=== PATIENT | male | born 1970 | race Caucasian/White ===

== ENCOUNTER 2022-04-04 11:56 | Inpatient (IN) | payer MEDICAID, SELFPAY ==
[2022-04-04] VITALS (9 sets, daily range): BP systolic 103–138; BP diastolic 59–82; PULSE 85–107; RESP 16–18; TEMP 37.1–37.9; O2SAT 93–97; BMI 38.5; BMI 38.3
--- NOTE | 2022-04-04 12:34 | ED.VIS.LOWEX ---
HPI History of Present Illness HPI Narrative: Left thigh infection Chief Complaint: Wound Informant: patient Occured/Mechanism Mechanism/Context: No injury and No blunt trauma Onset/Context/Timing Onset: Days Context: Gradual Onset Timing: Continuous Quality of Pain: Dull and Aching Current Severity: Mild Maximum Severity: Mild Associated Symptoms Associated Symptoms: Negative for Parasthesia, Weakness or Loss of Funtion Narrative Narrative: 51-year-old male prior history of end-stage renal disease and was receiving dialysis 6 years ago he got a renal transplant and has been off dialysis since that time. He was diagnosed as diabetic about a week ago and started on oral medication. States since last Sunday or has developed left thigh discomfort swelling and redness. He was seen today in urgent care and referred in for left thigh cellulitis. He has had fever and chills. He denies vomiting or diarrhea. He is not recently been on any antibiotics nor recently been hospitalized. Prior similar symptoms: No Recent Illness/Hospitalization: No PFSH PFS Medical History Diabetes Home Medications mycophenolate mofetil 250 mg capsule 750 mg PO BID 01/17/14 [History Last Taken Unknown] tacrolimus 1 mg capsule,extended release 24 hr (Astagraf XL) 4 mg PO BID 01/17/14 [History Last Taken Unknown] aspirin 81 mg tablet,delayed release 81 mg PO DAILY 04/04/22 [History Last Taken 04/04/22] atorvastatin 80 mg tablet 80 mg PO QHS 04/04/22 [History Last Taken 04/03/22] cholecalciferol (vitamin D3) 50 mcg (2,000 unit) capsule 2,000 unit PO DAILY 04/04/22 [History Last Taken 04/04/22] icosapent ethyl 1 gram capsule 2 g PO BID 04/04/22 [History Last Taken 04/04/22] losartan 25 mg tablet 25 mg PO BID 04/04/22 [History Last Taken 04/04/22] metformin 500 mg tablet 500 mg PO BID 04/04/22 [History Last Taken 04/03/22] metoprolol tartrate 25 mg tablet 25 mg PO BID 04/04/22 [History Last Taken 04/04/22] tacrolimus 1 mg capsule, immediate-release 3 mg PO DAILY@2100 04/04/22 [History Last Taken 04/03/22] Allergy/AdvReac Type Severity Reaction Status Date / Time No Known Allergies Allergy Verified 04/04/22 11:57 Surgical History History of heart artery stent History of kidney transplant Social History Smoking Status: Never smoker ROS ROS ED ROS Narrative Left eye redness and swelling. Fever and chills. Review of Systems ROS Unobtainable: Denies due to encephalopathy Constitutional Constitutional ED: Reports chills and fever(s) Eyes Eyes: Denies blurry vision ENT ENT ED: Denies ear pain Cardiovascular Cardiovascular: Denies chest pain Respiratory/Chest Respiratory/Chest: Denies cough or dyspnea Gastrointestinal Gastrointestinal: Denies abdominal pain Genitourinary Genitourinary ED: Denies dysuria or hematuria Musculoskeletal Musculoskeletal: Denies arthralgias Integumentary Reports rash Neurologic Neurologic: Denies headache(s) Psychiatric Psychiatric: Denies anxiety Endocrine Endocrinology: Denies polydipsia Hematologic/Lymphatic Hematologic/Lymphatic: Denies easy bleeding Allergic/Immunologic Allergic/Immunologic ED: Denies mouth swelling or tongue swelling EXAM Physical Exam Narrative Exam Narrative: 51-year-old male vital signs stable afebrile does not look septic toxic. No distress. H EENT exam unremarkable. Neck nontender. Lungs are clear. Heart regular rhythm rate about 100 no murmur. Abdomen soft nontender. Moving all 4 extremities. On his right proximal thigh just below the inguinal crease he has a wound. There is a large area of cellulitis. Area is tender. Skin is edematous. The distal thigh and lower leg are nontender. He has normal dorsi plantar flexion. This is an obvious cellulitis of the left thigh and infection. I do not feel an obvious abscess but that is a possibility also. Otherwise exam unremarkable. Const Vital Signs: 04/04/22 11:57 04/04/22 12:19 04/04/22 13:57 Temperature 98.8 F 99.5 F H 100.2 F H Temperature Source Temporal Oral Oral Pulse Rate 107 H 96 89 Respiratory Rate 16 18 18 Blood Pressure 138/78 H 131/82 H 127/76 H Blood Pressure Mean 98 98 93 Pulse Ox 95 97 95 Oxygen Delivery Method Room Air Room Air Room Air Positive well nourished, well developed and obese; Negative for cachectic, contractures or unkempt General Appearance ED: well developed and NAD; Negative for unkempt, cachectic or contractures Nutritional Appearance: obese; Negative for cachectic HEENT Reports moist mucous membranes normocephalic and atraumatic; Negative for trauma or tenderness Eyes PERRL Neck full ROM Thyroid: Negative for tender Lymph Lymphatic: Negative for other Chest Wall inspection of chest normal and palpation of chest normal Chest: Negative for other Resp normal respiratory effort, no retractions and clear to auscultation bilaterally Effort and Inspection: Negative for pain with movement Auscultation: Negative for rales or rhonchi Percussion: Negative for other Cardio regular rate, regular rhythm, S1 normal heart sound, S2 normal heart sound and no murmurs GI non-tender, non-distended and no masses Inspection: Negative for abdominal distention Auscultation: normoactive bowel sounds Palpation: soft; Negative for tender Back/Spine no CVA tenderness General Back: Negative for CVA tenderness Cervical Spine: Negative for cervical spine tenderness Thoracic Spine / Upper Back: Negative for thoracic spinal tenderness Lumbar Spine / Lower Back: Negative for lumbar spinal tenderness Extremity normal to inspection and full ROM Extremity Narrative: Except proximal anterior left thigh there is a wound, redness consistent with cellulitis swelling and tenderness. Distally unremarkable. Normal motor strength. General Extremety ED: Yes edema General Extremity: edema Neuro oriented x3 and moves all extremities Sensorium / Orientation: alert, oriented to person, oriented to place and oriented to time; Negative for orientation impaired, confused, lethargic or stuporous Motor Exam: strength 5/5 throughout; Negative for general weakness Psych mental status grossly normal Appearance: Negative for unkempt Speech: No other Mood & Affect: Negative for anxious Skin No no wounds Skin Narrative: Left thigh wound is infected. Cellulitis. Tender. Lesions: no lesions Rashes: No no rashes Trauma: Negative for abrasion MDM MDM MDM Narrative Medical decision making narrative: Diabetic with a kidney transplant with a large left thigh wound with cellulitis. Started on IV Zosyn. He will need to be admitted. Labs will be obtained. Repeat exam unchanged. I will speak to the hospitalist about admission. Lab Data Attestation: I reviewed the patient's lab results. Lab results narrative: CBC shows a white count is elevated 17.2 consistent with a left thigh infection. H&H of 15 and 47 2. Platelets of 209. BG T is 163 Electrolytes unremarkable. Normal BUN and creatinine. Normal gap. Glucose 158. Liver enzymes unremarkable. Labs: Laboratory Results - last 24 hr 04/04/22 04/04/22 04/04/22 12:36 12:39 12:39 WBC Cancelled Corrected WBC Cancelled RBC Cancelled Hgb Cancelled Hct Cancelled MCV Cancelled MCH Cancelled MCHC Cancelled RDW Std Deviation Cancelled RDW Coeff of Tra Cancelled Plt Count Cancelled MPV Cancelled Immature Gran % (Auto) Cancelled Neut % (Auto) Cancelled Lymph % (Auto) Cancelled [place] % (Auto) Cancelled Eos % (Auto) Cancelled Baso % (Auto) Cancelled Absolute Neuts (auto) Cancelled Absolute Lymphs (auto) Cancelled Total Counted Cancelled Neutrophils % (Manual) Cancelled Band Neutrophils % Cancelled Lymphocytes % (Manual) Cancelled Monocytes % (Manual) Cancelled Eosinophils % (Manual) Cancelled Basophils % (Manual) Cancelled Metamyelocytes % Cancelled Myelocytes % Cancelled Promyelocytes % Cancelled Blast Cells % Cancelled Plasma Cell % (Manual) Cancelled Other Cells % Cancelled Nucleated RBC % Cancelled Nucleated RBCs/100 WBC Cancelled Differential Comment Cancelled Diff Path Review Cancelled Hypersegmented Neuts Cancelled Atypical Lymphocytes Cancelled Reactive Lymphocytes Cancelled Smudge Cells Cancelled Toxic Granulation Cancelled Toxic Vacuolation Cancelled Dohle Bodies Cancelled Prakash Rods Cancelled Platelet Estimate Cancelled Plt Morphology Comment Cancelled RBC Morphology Cancelled Polychromasia Cancelled Hypochromasia Cancelled Poikilocytosis Cancelled Basophilic Stippling Cancelled Anisocytosis Cancelled Microcytosis Cancelled Macrocytosis Cancelled Spherocytes Cancelled Sickle Cells Cancelled Target Cells Cancelled Tear Drop Cells Cancelled Ovalocytes Cancelled Stomatocytes Cancelled Suresh[place] Bodies Cancelled Jefry Cells Cancelled Bite Cells Cancelled Crenated Cell Cancelled Acanthocytes (Spur) Cancelled Rouleaux Cancelled Schistocytes Cancelled Sodium 136 Potassium 3.8 Chloride 102 Carbon Dioxide 22.0 Anion Gap 12 BUN 14 Creatinine 1.08 Estim Creat Clear Calc 80.01 Est GFR (MDRD) Af Amer 92 Est GFR (MDRD) Non-Af 76 BUN/Creatinine Ratio 13.0 Glucose 158 H Calcium 10.1 Total Bilirubin 0.90 AST 19 ALT 39 Alkaline Phosphatase 121 H Total Protein 8.1 Albumin 3.2 Globulin 4.9 H Albumin/Globulin Ratio 0.7 L POC Glucose 163 H 04/04/22 13:03 WBC 17.2 H Corrected WBC RBC 4.92 Hgb 15.0 Hct 47.2 MCV 95.9 H MCH 30.5 MCHC 31.8 L RDW Std Deviation 49.6 H RDW Coeff of Tar 14.1 Plt Count 209 MPV 10.3 Immature Gran % (Auto) 0.600 Neut % (Auto) 87.7 H Lymph % (Auto) 4.0 L [place] % (Auto) 7.1 Eos % (Auto) 0.2 Baso % (Auto) 0.4 Absolute Neuts (auto) 15.1 H Absolute Lymphs (auto) 0.69 L Total Counted Neutrophils % (Manual) Band Neutrophils % Lymphocytes % (Manual) Monocytes % (Manual) Eosinophils % (Manual) Basophils % (Manual) Metamyelocytes % Myelocytes % Promyelocytes % Blast Cells % Plasma Cell % (Manual) Other Cells % Nucleated RBC % 0 Nucleated RBCs/100 WBC Differential Comment Diff Path Review Hypersegmented Neuts Atypical Lymphocytes Reactive Lymphocytes Smudge Cells Toxic Granulation Toxic Vacuolation Dohle Bodies Prakash Rods Platelet Estimate Plt Morphology Comment RBC Morphology Polychromasia Hypochromasia Poikilocytosis Basophilic Stippling Anisocytosis Microcytosis Macrocytosis Spherocytes Sickle Cells Target Cells Tear Drop Cells Ovalocytes Stomatocytes [place]ures[place] Bodies Jefry Cells Bite Cells Crenated Cell Acanthocytes (Spur) Rouleaux Schistocytes Sodium Potassium Chloride Carbon Dioxide Anion Gap BUN Creatinine Estim Creat Clear Calc Est GFR (MDRD) Af Amer Est GFR (MDRD) Non-Af BUN/Creatinine Ratio Glucose Calcium Total Bilirubin AST ALT Alkaline Phosphatase Total Protein Albumin Globulin Albumin/Globulin Ratio POC Glucose Discharge Plan Triage Chief Complaint: Wound ED Provider: Hany Koo Dx/Rx/DC Orders Clinical Impression: Cellulitis of left thigh, History of diabetes mellitus, History of chronic kidney disease, History of renal transplant Prescriptions: No Action mycophenolate mofetil 250 MG capsule 1,000 mg PO BID@0900,2100 Astagraf XL 1 MG capsule,extended release 24hr 2 mg PO DAILY@0900 metformin 500 mg tablet 500 mg PO BID Label Comments: TAKE 1 TABLET BY MOUTH TWICE DAILY WITH MEALS atorvastatin 80 mg tablet 80 mg PO QHS Label Comments: Take 1 tablet by mouth nightly aspirin 81 mg tablet,delayed release (DR/EC) 81 mg PO DAILY Label Comments: Take 1 tablet by mouth daily losartan 25 mg tablet 25 mg PO BID Label Comments: TAKE 1 TABLET BY MOUTH EVERY 12 HOURS tacrolimus 1 mg capsule 3 mg PO DAILY@2100 Label Comments: TAKE 2 CAPSULES BY MOUTH at 9 AM and TAKE 3 CAPSULES at 9 PM. metoprolol tartrate 25 mg tablet 25 mg PO BID Label Comments: Take 1 tablet by mouth 2 times daily cholecalciferol (vitamin D3) 50 mcg (2,000 unit) capsule 2,000 unit PO DAILY Label Comments: TAKE 1 CAPSULE BY MOUTH DAILY icosapent ethyl 1 gram capsule 2 g PO BID Label Comments: TAKE 2 CAPSULES BY MOUTH TWICE DAILY Primary Care Provider: Mg Wagner Referrals: Laith Yousif MD [Non-Staff] - Disposition Disposition: Acute Care Hospital [facility]
--- NOTE | 2022-04-04 12:46 | NURSING ---
PER TED ANAYA, NEED A NEW PURPLE TOP
[2022-04-04 12:55] LABS: Bedside Glucose 163 mg/dL (74-106)
[2022-04-04 13:11] LABS: Absolute Lymphocyte Count 0.69 X10^3/uL (0.83-4.51); Absolute Neutrophil Count 15.1 X10^3/uL (2.0-7.7); Basophil# 0.07 X10^3/uL; Basophil% 0.4 % (0-1); Eosinophil# 0.03 X10^3/uL; Eosinophils% 0.2 % (0-5); Hematocrit 47.2 % (40-54); Lymphocyte # 0.69 X10^3/ul (0.83-4.51); Mean Corp Hgb Conc 31.8 g/dL (32-36); Mean Corpuscular Hgb 30.5 pg (27.0-32.0); Mean Corpuscular Volume 95.9 fL (80-94); Mean Platelet Vol. 10.3 fl (6.2-12.0); Monocyte# 1.23 X10^3/uL; Monocyte% 7.1 % (0-10); NRBC Flagged by Analyzer 0 % (0-5); Neutrophil % 87.7 % (47-70); Platelet Count 209 K/mm3 (150-450); RBC Distribution Width CV 14.1 % (11.6-14.6); RBC Distribution Width SD 49.6 fl (35.1-43.9); Red Blood Count 4.92 M/mm3 (4.6-6.2); White Blood Count 17.2 K/mm3 (4.4-11.0)
[2022-04-04 13:28] LABS: ALB/GLOB Ratio 0.7 RATIO (0.9-2.4); AST(SGOT) 19 U/L (15-37); Alanine Aminotransfer ALT/SGPT 39 U/L (16-61); Albumin, Serum 3.2 g/dL (3.2-5.0); Alkaline Phosphatase 121 U/L (45-117); Anion Gap 12 (5-15); BUN 14 mg/dL (7-18); Calcium,Total 10.1 mg/dL (8.5-10.1); Chloride 102 mmol/L (98-107); Creatinine, Serum 1.08 mg/dL (0.70-1.30); EST Glomerular Filtration Rate 76 mL/min (>60); Est Glom Filt Rate - Afr Amer 92 mL/min (>60); Estimated Creatinine Clearance 80.01 ml/min; Globulin 4.9 g/dL (2.2-4.2); Glucose 158 mg/dL (74-106); Potassium 3.8 mmol/L (3.5-5.1); Protein, Total 8.1 g/dL (6.4-8.2); Sodium Level 136 mmol/L (136-145)
--- NOTE | 2022-04-04 14:17 | CT_ITS ---
STUDY: CT Lower Extremity W/ Contrast Injection 04/04/2022 5:12 PM REASON FOR EXAM: Male, 51 years old. History, Signs T Symptoms left groin cellulitis History, Signs T Symptoms left groin cellulitis Individualized dose optimization techniques were used for this CT. COMPARISON: None. TECHNIQUE: Multiple axial computed tomographic images were obtained of the lower extremity and left hip. IV contrast was Contrast iv-75 ml isovue 370 was utilized. FINDINGS: Soft tissue planes are preserved. There is no fracture. There is no dislocation. There is anatomic alignment. The sacro iliac joint is unremarkable. Femoral head is noted in the acetabulum. Partially visualized right lower quadrant renal aspect kidney. There are atherosclerotic vascular calcifications. Diverticulosis is visualized. Enlarged left inguinal and left lower quadrant enlarged lymph nodes. Left hip skin thickening and subcutaneous inflammation and air is visualized suggesting cellulitis. There is hyperdense packing material in the open wound. No drainable abscess. CT/Extremity Lower WITH Contrast IMPRESSION: Left hip skin thickening and subcutaneous inflammation and air is visualized suggesting cellulitis. There is hyperdense packing material in the open wound. No drainable abscess. Electronically Signed: Gilbert Resendez MD at 17:16 EDT ,
--- NOTE | 2022-04-04 14:23 | HP.PCM.HOS_ITS ---
[facility] - General General Date of Service: 04/04/22 Chief Complaint: left groin redness HPI Narrative JOSE ROBERTO NIX, is a 51 M who presents with several day history of left groin redness. Patient had lesion on his buttocks that resolved after applying ointment but then developed an area in his left groin a few days ago. Noted that it was swollen yesterday, but today, however, it got much more swollen and was oozing. Patient presented to the emergency room and had a white count of 17,000 and a temperature of 37.5 ?C. Patient received piperacillin/tazobactam in the emergency room. Patient has had some slight chills at home. Otherwise feels well. He denies any preceding lesion to this region. [facility] Medical History (Updated 04/04/22 @ 14:[address] Adiel Toribio, ) Coronary artery disease Diabetes History of chronic kidney disease Hypertension Home Medications mycophenolate mofetil 250 mg capsule 1,000 mg PO BID@0900,2100 01/17/14 [History Last Taken 04/04/22] tacrolimus 1 mg capsule,extended release 24 hr (Astagraf XL) 2 mg PO DAILY@0900 01/17/14 [History Last Taken 04/04/22] aspirin 81 mg tablet,delayed release 81 mg PO DAILY 04/04/22 [History Last Taken 04/04/22] atorvastatin 80 mg tablet 80 mg PO QHS 04/04/22 [History Last Taken 04/03/22] cholecalciferol (vitamin D3) 50 mcg (2,000 unit) capsule 2,000 unit PO DAILY 04/04/22 [History Last Taken 04/04/22] icosapent ethyl 1 gram capsule 2 g PO BID 04/04/22 [History Last Taken 04/04/22] losartan 25 mg tablet 25 mg PO BID 04/04/22 [History Last Taken 04/04/22] metformin 500 mg tablet 500 mg PO BID 04/04/22 [History Last Taken 04/03/22] metoprolol tartrate 25 mg tablet 25 mg PO BID 04/04/22 [History Last Taken 04/04/22] tacrolimus 1 mg capsule, immediate-release 3 mg PO DAILY@2100 04/04/22 [History Last Taken 04/03/22] Allergy/AdvReac Type Severity Reaction Status Date / Time No Known Allergies Allergy Verified 04/04/22 11:57 Surgical History (Updated 04/04/22 @ 14:[address] Adiel Toribio DO) History of heart artery stent History of kidney transplant History of renal transplant Social History (Updated 04/04/22 @ 14:[address] Adiel Toribio DO) Smoking Status: Never smoker substance use type: marijuana ROS ROS Narrative All review of systems were negative except as mentioned above in the history of present illness and the other review of systems. Vital Signs Vital Signs Vital Signs: 04/04/22 11:57 04/04/22 12:19 04/04/22 13:57 Temperature 37.1 C 37.5 C H 37.9 C H Temperature Source Temporal Oral Oral Pulse Rate 107 H 96 89 Respiratory Rate 16 18 18 Blood Pressure 138/78 H 131/82 H 127/76 H Blood Pressure Mean 98 98 93 Pulse Ox 95 97 95 Oxygen Delivery Method Room Air Room Air Room Air 04/04/22 14:20 Temperature 37.9 C H Temperature Source Oral Pulse Rate 90 Respiratory Rate 18 Blood Pressure 123/70 H Blood Pressure Mean 87 Pulse Ox 95 Oxygen Delivery Method Room Air Weight Weight: 118.5 kg Body Mass Index (BMI) 38.5 Physical Exam Const alert and no apparent distress Neck no lymphadenopathy Resp normal respiratory effort, no retractions and no use of accessory muscles Cardio regular rate, regular rhythm, S1 normal heart sound and S2 normal heart sound GI normal to inspection, nondistended, normoactive bowel sounds, soft to palpation, non-tender and non-distended Extremity Extremity Narrative: Very large indurated region in his left groin with some slight purulence that could be expressed.. Goes from below his thigh and extends proximally up his leg. There is no scrotal involvement. Psych affect normal Results Lab / Micro Data Result Diagrams: 04/04/22 13:03 04/04/22 12:39 Labs: Laboratory Results - last 24 hr 04/04/22 12:36: POC Glucose 163 H 04/04/22 12:39: WBC Cancelled, Corrected WBC Cancelled, RBC Cancelled, Hgb Cancelled, Hct Cancelled, MCV Cancelled, MCH Cancelled, MCHC Cancelled, RDW Std Deviation Cancelled, RDW Coeff of Tra Cancelled, Plt Count Cancelled, MPV Cancelled, Immature Gran % (Auto) Cancelled, Neut % (Auto) Cancelled, Lymph % (Auto) Cancelled, [place] % (Auto) Cancelled, Eos % (Auto) Cancelled, Baso % (Auto) Cancelled, Absolute Neuts (auto) Cancelled, Absolute Lymphs (auto) Cancelled, Total Counted Cancelled, Neutrophils % (Manual) Cancelled, Band Neutrophils % Cancelled, Lymphocytes % (Manual) Cancelled, Monocytes % (Manual) Cancelled, Eosinophils % (Manual) Cancelled, Basophils % (Manual) Cancelled, Metamyelocytes % Cancelled, Myelocytes % Cancelled, Promyelocytes % Cancelled, Blast Cells % Cancelled, Plasma Cell % (Manual) Cancelled, Other Cells % Cancelled, Nucleated RBC % Cancelled, Nucleated RBCs/100 WBC Cancelled, Differential Comment Cancelled, Diff Path Review Cancelled, Hypersegmented Neuts Cancelled, Atypical Lymphocytes Cancelled, Reactive Lymphocytes Cancelled, Smudge Cells Cancelled, Toxic Granulation Cancelled, Toxic Vacuolation Cancelled, Dohle Bodies Cancelled, Prakash Rods Cancelled, Platelet Estimate Cancelled, Plt Morphology Comment Cancelled, RBC Morphology Cancelled, Polychromasia Cancelled, Hypochromasia Cancelled, Poikilocytosis Cancelled, Basophilic Stippling Cancelled, Anisocytosis Cancelled, Microcytosis Cancelled, Macrocytosis Cancelled, Spherocytes Cancelled, Sickle Cells Cancelled, Target Cells Cancelled, Tear Drop Cells Cancelled, Ovalocytes Cancelled, Stomatocytes Ca ncelled, Suresh-[place] Bodies Cancelled, [place] Cells Cancelled, Bite Cells Cancelled, Crenated Cell Cancelled, Acanthocytes (Spur) Cancelled, Rouleaux Cancelled, Schistocytes Cancelled 04/04/22 12:39: Sodium 136, Potassium 3.8, Chloride 102, Carbon Dioxide 22.0, Anion Gap 12, BUN 14, Creatinine 1.08, Estim Creat Clear Calc 80.01, Est GFR (MDRD) Af Amer 92, Est GFR (MDRD) Non-Af 76, BUN/Creatinine Ratio 13.0, Glucose 158 H, Calcium 10.1, Total Bilirubin 0.90, AST 19, ALT 39, Alkaline Phosphatase 121 H, Total Protein 8.1, Albumin 3.2, Globulin 4.9 H, Albumin/Globulin Ratio 0.7 L 04/04/22 13:03: WBC 17.2 H, RBC 4.92, Hgb 15.0, Hct 47.2, MCV 95.9 H, MCH 30.5, MCHC 31.8 L, RDW Std Deviation 49.6 H, RDW Coeff of Tra 14.1, Plt Count 209, MPV 10.3, Immature Gran % (Auto) 0.600, Neut % (Auto) 87.7 H, Lymph % (Auto) 4.0 L, [place] % (Auto) 7.1, Eos % (Auto) 0.2, Baso % (Auto) 0.4, Absolute Neuts (auto) 15.1 H, Absolute Lymphs (auto) 0.69 L, Nucleated RBC % 0 Assessment & Plan Assessment/Plan (1) Cellulitis of left thigh: PLAN: Very concerning that patient may have an underlying abscess. Patient received Pipracil/tazobactam in the emergency room. We will continue with that and also add vancomycin Given concern for possible abscess, a CT will be performed. Case discussed with Dr. Lowe, of orthopedics, who will see the patient in consultation. He recommended keeping the patient n.p.o. for now and will see the patient on the floor. Check wound culture. Check blood cultures. PLAN: Plan Chronic conditions * Coronary artery disease: Patient has stent placed about 4 years ago. We will hold his aspirin for now given potential need for surgery * Diabetes mellitus type 2: On metformin. They will be held given contrast that he is can be receiving with the CT scan. Sliding-scale insulin. 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 Patient has a cadaveric transplant. Continue with mycophenolate and tacroli mus VTE prophylaxis: SCDs. Holding off on chemical prophylaxis given potential need for surgery. Charges/Coding Visit Charges Inpatient E&M: 92042 Init Hosp L3
--- NOTE | 2022-04-04 14:27 | NURSING ---
MED SURG [facility] LEFT THIGH CELLULITIS, DM, LEUKOCYTOSIS S/P RENAL TRANSPLANT
[2022-04-04] MEDS: Lidocaine 1% /Epi 1:100 (20ml) 20 ML Vial INFILT (14:57)
--- NOTE | 2022-04-04 15:27 | CONS.ORTHO ---
HPI Consult Data Date of Consult: 04/04/22 HPI Narrative Reason for Consultation: Left groin abscess HPI Narrative: JOSE ROBERTO NIX, is a 51 M who presents with approximately 4 days of left groin redness, pain and swelling. He noticed some increased pain, swelling and oozing from the left groin today prompting ER visit. Complains of some subjective fevers and chills. Otherwise, he states he feels well. Denies chest pain, shortness of breath, nausea or vomiting. Patient had a recent left buttock abscess that resolved after applying topical antibiotic ointment approximately a week ago. Of note, patient has had a renal transplant and is on antirejection medication. IV antibiotics were started in the emergency room. Dr. Toribio contacted me from the emergency department after agreeing to admit the patient. He asked if I would see the patient for possible surgical management of a suspected left groin abscess. [facility] Medical History Coronary artery disease Diabetes History of chronic kidney disease Hypertension Home Medications mycophenolate mofetil 250 mg capsule 1,000 mg PO BID@0900,2100 01/17/14 [History Last Taken 04/04/22] tacrolimus 1 mg capsule,extended release 24 hr (Astagraf XL) 2 mg PO DAILY@0901/17/14 [History Last Taken 04/04/22] aspirin 81 mg tablet,delayed release 81 mg PO DAILY 04/04/22 [History Last Taken 04/04/22] atorvastatin 80 mg tablet 80 mg PO QHS 04/04/22 [History Last Taken 04/03/22] cholecalciferol (vitamin D3) 50 mcg (2,000 unit) capsule 2,000 unit PO DAILY 04/04/22 [History Last Taken 04/04/22] icosapent ethyl 1 gram capsule 2 g PO BID 04/04/22 [History Last Taken 04/04/22] losartan 25 mg tablet 25 mg PO BID 04/04/22 [History Last Taken 04/04/22] metformin 500 mg tablet 500 mg PO BID 04/04/22 [History Last Taken 04/03/22] metoprolol tartrate 25 mg tablet 25 mg PO BID 04/04/22 [History Last Taken 04/04/22] tacrolimus 1 mg capsule, immediate-release 3 mg PO DAILY@2100 04/04/22 [History Last Taken 04/03/22] Allergy/AdvReac Type Severity Reaction Status Date / Time No Known Allergies Allergy Verified 04/04/22 11:57 Surgical History History of heart artery stent History of kidney transplant History of renal transplant Social History (Updated 04/04/22 @ 14:[address] Adiel Toribio, DO) Smoking Status: Current every day smoker tobacco type: cigarettes substance use type: marijuana ROS ROS Narrative 12 point review of systems obtained, negative unless otherwise noted in HPI. Vital Signs Vital Signs Vital Signs: 04/04/22 11:57 04/04/22 12:19 04/04/22 13:57 Temperature 98.8 F 99.5 F H 100.2 F H Temperature Source Temporal Oral Oral Pulse Rate 107 H 96 89 Respiratory Rate 16 18 18 Blood Pressure 138/78 H 131/82 H 127/76 H Blood Pressure Mean 98 98 93 Pulse Ox 95 97 95 Oxygen Delivery Method Room Air Room Air Room Air 04/04/22 14:20 Temperature 100.3 F H Temperature Source Oral Pulse Rate 90 Respiratory Rate 18 Blood Pressure 123/70 H Blood Pressure Mean 87 Pulse Ox 95 Oxygen Delivery Method Room Air Weight Weight: 261 lb 3.964 oz Body Mass Index (BMI) 38.5 Physical Exam Narrative General -A&Ox3, NAD, appears stated age. Vital signs stable, afebrile. Respiratory -normal work of breathing, no intercostal retractions. CV -pulses regular, brisk capillary refill ?4 limbs. Abdomen-soft, nontender, nondistended. No guarding, rigidity, rebound tenderness. Musculoskeletal/neurologic -full range of motion nontender throughout bilateral upper extremities, right lower extremity with full sensation and strength in all dermatomes and myotomes. No midline cervical tenderness. Approximately 15 x 10 cm area of induration, erythema and subcutaneous purulence with central skin ecchymosis which is foul-smelling. The area is warm to touch. Patient is neurovascular intact in the left lower extremity. Erythema does not past the groin fold. There is no scrotal swelling. DP pulse 2+ brisk upper refill in the toes. DF, PF, EHL 5/5. Lab / Micro Data Result Diagrams: 04/04/22 13:03 04/04/22 12:39 Labs: Laboratory Results - last 24 hr 04/04/22 12:36: POC Glucose 163 H 04/04/22 12:39: WBC Cancelled, Corrected WBC Cancelled, RBC Cancelled, Hgb Cancelled, Hct Cancelled, MCV Cancelled, MCH Cancelled, MCHC Cancelled, RDW Std Deviation Cancelled, RDW Coeff of Tra Cancelled, Plt Count Cancelled, MPV Cancelled, Immature Gran % (Auto) Cancelled, Neut % (Auto) Cancelled, Lymph % (Auto) Cancelled, [place] % (Auto) Cancelled, Eos % (Auto) Cancelled, Baso % (Auto) Cancelled, Absolute Neuts (auto) Cancelled, Absolute Lymphs (auto) Cancelled, Total Counted Cancelled, Neutrophils % (Manual) Cancelled, Band Neutrophils % Cancelled, Lymphocytes % (Manual) Cancelled, Monocytes % (Manual) Cancelled, Eosinophils % (Manual) Cancelled, Basophils % (Manual) Cancelled, Metamyelocytes % Cancelled, Myelocytes % Cancelled, Promyelocytes % Cancelled, Blast Cells % Cancelled, Plasma Cell % (Manual) Cancelled, Other Cells % Cancelled, Nucleated RBC % Cancelled, Nucleated RBCs/100 WBC Cancelled, Differential Comment Cancelled, Diff Path Review Cancelled, Hypersegmented Neuts Cancelled, Atypical Lymphocytes Cancelled, Reactive Lymphocytes Cancelled, Smudge Cells Cancelled, Toxic Granulation Cancelled, Toxic Vacuolation Cancelled, Dohle Bodies Cancelled, Prakash Rods Cancelled, Platelet Estimate Cancelled, Plt Morphology Comment Cancelled, RBC Morphology Cancelled, Polychromasia Cancelled, Hypochromasia Cancelled, Poikilocytosis Cancelled, Basophilic Stippling Cancelled, Anisocytosis Cancelled, Microcytosis Cancelled, Macrocytosis Cancelled, Spherocytes Cancelled, Sickle Cells Cancelled, Target Cells Cancelled, Tear Drop Cells Cancelled, Ovalocytes Cancelled, Stomatocytes Cancelled, [place]uresh-[place] Bodies Cancelled, [place] Cells Cancelled, Bite Cells Cancelled, Crenated Cell Cancelled, Acanthocytes (Spur) Cancelled, Rouleaux Cancelled, Schistocytes Cancelled 04/04/22 12:39: Sodium 136, Potassium 3.8, Chloride 102, Carbon Dioxide 22.0, Anion Gap 12, BUN 14, Creatinine 1.08, Estim Creat Clear Calc 80.01, Est GFR (MDRD) Af Amer 92, Est GFR (MDRD) Non-Af 76, BUN/Creatinine Ratio 13.0, Glucose 158 H, Calcium 10.1, Total Bilirubin 0.90, AST 19, ALT 39, Alkaline Phosphatase 121 H, Total Protein 8.1, Albumin 3.2, Globulin 4.9 H, Albumin/Globulin Ratio 0.7 L 04/04/22 13:03: WBC 17.2 H, RBC 4.92, Hgb 15.0, Hct 47.2, MCV 95.9 H, MCH 30.5, MCHC 31.8 L, RDW Std Deviation 49.6 H, RDW Coeff of Tra 14.1, Plt Count 209, MPV 10.3, Immature Gran % (Auto) 0.600, Neut % (Auto) 87.7 H, Lymph % (Auto) 4.0 L, [place] % (Auto) 7.1, Eos % (Auto) 0.2, Baso % (Auto) 0.4, Absolute Neuts (auto) 15.1 H, Absolute Lymphs (auto) 0.69 L, Nucleated RBC % 0 Assessment & Plan Assessment/Plan (1) Abscess of left groin: PLAN: Patient appears to have a subcutaneous left groin abscess. CT imaging is pending. Given the obvious physical exam findings and skin ecchymosis, I recommended emergent provisional incision and drainage in the emergency department. Informed consent was obtained from the patient. See procedure note to follow for operative details. Patient tolerated the procedure well without complication. Iodoform packing placed Continue IV antibiotics Aerobic and anaerobic cultures obtained N.p.o. after midnight for surgical intervention tomorrow I reviewed the risks, benefits, alternatives to the procedure with the patient at length and he agreed to proceed. Risks included but are not limited to bleeding, flexion, loss of life or limb, need for additional surgery, persistent infection, nonhealing wounds, neurovascular injury, DVT or PE. Informed consent obtained.
--- NOTE | 2022-04-04 15:34 | PRO.PCM_ITS ---
Procedure Report Date of Procedure: 04/04/22 Preprocedure diagnosis: Left groin subcutaneous abscess Post procedure diagnosis: Left groin subcutaneous abscess Procedure: Bedside incision and drainage left groin abscess Anesthesia: Local 10 cc 1% lidocaine without epinephrine 1: 100,000 Consent/indication: JOSE ROBERTO NIX, is a 51 M who presents with approximately 4 days of left groin redness, pain and swelling.? He noticed some increased pain, swelling and oozing from the left groin today prompting ER visit.? Complains of some subjective fevers and chills.? Otherwise, he states he feels well.? Denies chest pain, shortness of breath, nausea or vomiting.? Patient had a recent left buttock abscess that resolved after applying topical antibiotic ointment approximately a week ago.? Of note, patient has had a renal transplant and is on antirejection medication.? IV antibiotics were started in the emergency room.? Dr. Toribio contacted me from the emergency department after agreeing to admit the patient.? He asked if I would see the patient for possible surgical management of a suspected left groin abscess. I recommended bedside incision and drainage. The risk, benefits, terms of procedure reviewed with patient at length and he agreed to proceed. Informed consent obtained. Estimated blood loss: 10 cc Complications: None apparent Packin feet iodoform 1 inch packing Drains: None Specimen: Aerobic and anaerobic abscess fluid cultures Intraoperative findings: Foul-smelling purulent drainage with globular fat Description of procedure: Skin was prepped with Betadine overlying the anterior groin. I anesthetized my planned incision in the central portion of the abscess with 10 cc 1% lidocaine with epinephrine 1: 100,000. After presently 5 minutes, I prepped and draped the left anterior groin is a normal sterile fashion. I confirmed anesthesia with my planned incision. An approximate 2 cm incision was made with a 11 blade scalpel through skin and subcutaneous tissue. Purulence and dark bloody drainage was encountered as well as increased in foul- smelling odor. Cultures were immediately obtained. I then used a hemostat to explore in the subcutaneous plane for loculations. Several loculations were encountered and broken free with the hemostat. Approximately 2 feet of iodoform 1 inch packing was placed in the incision. There was improvement in the appearance of the skin and swelling. Patient expressed improvement in pain following the procedure. Patient tolerated procedure well without apparent complication. Patient will be admitted under the service of hospitalist team. Continue IV antibiotics. Cultures pending. N.p.o. after midnight for incision and drainage in the OR tomorrow.
[2022-04-04 16:35] LABS: Bedside Glucose 149 mg/dL (74-106)
[2022-04-04] MEDS: Ensure Plus High Protein 120 ML LIQUID PO (17:32)
[2022-04-04] MEDS: oxyCODONE 5 MG Tablet PO (17:35)
[2022-04-04] MEDS: Acetaminophen 325 MG Tablet 650 MG PO (17:35)
[2022-04-04] MEDS: 0.9% Saline Lock 10 ML Syringe IV (17:47)
--- NOTE | 2022-04-04 18:04 | PCM.RX.CS ---
Consult Pharmacy has been consulted to manage selected antiobiotic: Vancomycin Type of Consult: New start Suspected Infection: Skin/Soft tissue Labs: Sodium 136 mmol/L (136-145) 04/04/22 12:39 Potassium 3.8 mmol/L (3.5-5.1) 04/04/22 12:39 Chloride 102 mmol/L (98-107) 04/04/22 12:39 Carbon Dioxide 22.0 mmol/L (21.0-32.0) 04/04/22 12:39 Anion Gap 12 (5-15) 04/04/22 12:39 BUN 14 mg/dL (7-18) 04/04/22 12:39 Creatinine 1.08 mg/dL (0.70-1.30) 04/04/22 12:39 Est GFR (MDRD) Af Amer 92 mL/min (>60) 04/04/22 12:39 Est GFR (MDRD) Non-Af 76 mL/min (>60) 04/04/22 12:39 BUN/Creatinine Ratio 13.0 RATIO (10-20) 04/04/22 12:39 Glucose 158 mg/dL (74-106) H 04/04/22 12:39 Weight used for dosin.8 kg Estimated Creatinine Clearance: 101 ML/MIN Goal Trough: 15-20 mcg/mL Pharmacy Plan for Drug Dosing: Give initial loading dose of vanc 2000mg IV x1, then continue with vanc 1500mg IV q8h per [facility] dosing protocol. Will check a trough level before the 4th total dose tomorrow. The patient's CrCl of 101 ml/min was calculated using an adjusted body weight. Pharmacy Service will continue to monitor and adjust dosing as required. Follow-Up Labs: Trough Vancomycin Labs to be done on [date and time ordered]: 04/05/22 17:30
[2022-04-04] MEDS: Mycophenolate Mofetil 250 MG Capsule 1000 MG PO (20:14)
[2022-04-04] MEDS: Tacrolimus Anhydrous 1 MG Capsule 3 MG PO (20:27)
[2022-04-04] MEDS: Atorvastatin Calcium 80 MG Tablet PO (21:29)
[2022-04-04] MEDS: Losartan Potassium 25 MG Tablet PO (21:29)
[2022-04-04 22:06] LABS: Bedside Glucose 144 mg/dL (74-106)
[2022-04-05] VITALS (7 sets, daily range): BP systolic 100–119; BP diastolic 61–70; PULSE 80–89; RESP 14–18; TEMP 36.7–37.8; O2SAT 92–96
--- NOTE | 2022-04-05 06:00 | EKG12_ITS ---
Test Reason : AM EKG Blood Pressure : / mmHG Vent. Rate : 088 BPM Atrial Rate : 088 BPM P-R Int : 138 ms QRS Dur : 092 ms QT Int : 372 ms P-R-T Axes : 069 014 038 degrees QTc Int : 450 ms Normal sinus rhythm Normal ECG When compared with ECG of 18-JUL-2013 12:35, No significant change was found Confirmed by SUE HUMPHREY, DARRION ([id number]), slot editor ZULMA HURST ([id number]) on 04/06/2022 9:50:33 AM Referred By: MORENA Confirmed By:DARRION ROGERS MD
[2022-04-05 06:13] LABS: Absolute Lymphocyte Count 0.91 X10^3/uL (0.83-4.51); Absolute Neutrophil Count 14.3 X10^3/uL (2.0-7.7); Basophil# 0.06 X10^3/uL; Basophil% 0.4 % (0-1); Eosinophil# 0.11 X10^3/uL; Eosinophils% 0.7 % (0-5); Hematocrit 40.4 % (40-54); Hemoglobin 13.3 g/dL (13.0-16.5); Lymphocyte # 0.91 X10^3/ul (0.83-4.51); Lymphocyte % 5.5 % (19-41); Mean Corp Hgb Conc 32.9 g/dL (32-36); Mean Corpuscular Hgb 30.4 pg (27.0-32.0); Mean Corpuscular Volume 92.4 fL (80-94); Mean Platelet Vol. 10.3 fl (6.2-12.0); Monocyte# 1.24 X10^3/uL; Monocyte% 7.4 % (0-10); NRBC Flagged by Analyzer 0 % (0-5); Neutrophil # 14.25 X10^3/uL (2.7-7.7); Neutrophil % 85.4 % (47-70); Platelet Count 240 K/mm3 (150-450); RBC Distribution Width CV 14.2 % (11.6-14.6); Red Blood Count 4.37 M/mm3 (4.6-6.2); White Blood Count 16.7 K/mm3 (4.4-11.0)
[2022-04-05 06:51] LABS: BUN 13 mg/dL (7-18); Creatinine, Serum 0.83 mg/dL (0.70-1.30); EST Glomerular Filtration Rate 104 mL/min (>60); Estimated Creatinine Clearance 104.11 ml/min; Glucose 140 mg/dL (74-106)
[2022-04-05 06:52] LABS: Anion Gap 8 (5-15); BUN/Creat Ratio 15.7 RATIO (10-20); Calcium,Total 8.9 mg/dL (8.5-10.1); Chloride 105 mmol/L (98-107); Est Glom Filt Rate - Afr Amer 125 mL/min (>60); Potassium 3.4 mmol/L (3.5-5.1); Sodium Level 134 mmol/L (136-145)
[2022-04-05 07:00] LABS: Bedside Glucose 138 mg/dL (74-106)
--- NOTE | 2022-04-05 07:22 | PCM.PN.ORT ---
Subjective Subjective Patient seen and examined at bedside today. Subjective fevers overnight. Denies nausea vomiting, chest pain or shortness of breath. States pain is much improved on the left groin than before bedside I&D yesterday. Objective Data Objective Data Vital Signs: Vital Signs Temp Pulse Resp BP Pulse Ox O2 Del Method 98.9 F 89 18 119/67 92 Room Air 04/05/22 05:22 04/05/22 02:20 04/05/22 02:20 04/05/22 02:20 04/05/22 02:20 04/05/22 02:20 Oxygen Delivery Method Room Air Weight: 259 lb 11.272 oz Body Mass Index (BMI) 38.3 Intake & Output: Intake and Output for Last 24 Hours 04/03/22 04/04/22 04/05/22 23:59 23:59 23:59 Intake Total 1405.25 / 1405.25 580 / 580 Balance 1405.25 / 1405.25 580 / 580 Lab / Micro Data Attestation: I reviewed the patient's lab results. Result Diagrams: 04/05/22 06:01 04/05/22 06:01 Labs: Laboratory Results - last 24 hr 04/04/22 12:36: POC Glucose 163 H 04/04/22 12:39: WBC Cancelled, Corrected WBC Cancelled, RBC Cancelled, Hgb Cancelled, Hct Cancelled, MCV Cancelled, MCH Cancelled, MCHC Cancelled, RDW Std Deviation Cancelled, RDW Coeff of Tra Cancelled, Plt Count Cancelled, MPV Cancelled, Immature Gran % (Auto) Cancelled, Neut % (Auto) Cancelled, Lymph % (Auto) Cancelled, [place] % (Auto) Cancelled, Eos % (Auto) Cancelled, Baso % (Auto) Cancelled, Absolute Neuts (auto) Cancelled, Absolute Lymphs (auto) Cancelled, Total Counted Cancelled, Neutrophils % (Manual) Cancelled, Band Neutrophils % Cancelled, Lymphocytes % (Manual) Cancelled, Monocytes % (Manual) Cancelled, Eosinophils % (Manual) Cancelled, Basophils % (Manual) Cancelled, Metamyelocytes % Cancelled, Myelocytes % Cancelled, Promyelocytes % Cancelled, Blast Cells % Cancelled, Plasma Cell % (Manual) Cancelled, Other Cells % Cancelled, Nucleated RBC % Cancelled, Nucleated RBCs/100 WBC Cancelled, Differential Comment Cancelled, Diff Path Review Cancelled, Hypersegmented Neuts Cancelled, Atypical Lymphocytes Cancelled, Reactive Lymphocytes Cancelled, Smudge Cells Cancelled, Toxic Granulation Cancelled, Toxic Vacuolation Cancelled, Dohle Bodies Cancelled, Prakash Rods Cancelled, Platelet Estimate Cancelled, Plt Morphology Comment Cancelled, RBC Morphology Cancelled, Polychromasia Cancelled, Hypochromasia Cancelled, Poikilocytosis Cancelled, Basophilic Stippling Cancelled, Anisocytosis Cancelled, Microcytosis Cancelled, Macrocytosis Cancelled, Spherocytes Cancelled, Sickle Cells Cancelled, Target Cells Cancelled, Tear Drop Cells Cancelled, Ovalocytes Cancelled, Stomatocytes Cancelled, [place] Bodies Cancelled, [place] Cells Cancelled, Bite Cells Cancelled, Crenated Cell Cancelled, Acanthocytes (Spur) Cancelled, Rouleaux Cancelled, Schistocytes Cancelled 04/04/22 12:39: Sodium 136, Potassium 3.8, Chloride 102, Carbon Dioxide 22.0, Anion Gap 12, BUN 14, Creatinine 1.08, Estim Creat Clear Calc 80.01, Est GFR (MDRD) Af Amer 92, Est GFR (MDRD) Non-Af 76, BUN/Creatinine Ratio 13.0, Glucose 158 H, Calcium 10.1, Total Bilirubin 0.90, AST 19, ALT 39, Alkaline Phosphatase 121 H, Total Protein 8.1, Albumin 3.2, Globulin 4.9 H, Albumin/Globulin Ratio 0.7 L 04/04/22 13:03: WBC 17.2 H, RBC 4.92, Hgb 15.0, Hct 47.2, MCV 95.9 H, MCH 30.5, MCHC 31.8 L, RDW Std Deviation 49.6 H, RDW Coeff of Tra 14.1, Plt Count 209, MPV 10.3, Immature Gran % (Auto) 0.600, Neut % (Auto) 87.7 H, Lymph % (Auto) 4.0 L, [place] % (Auto) 7.1, Eos % (Auto) 0.2, Baso % (Auto) 0.4, Absolute Neuts (auto) 15.1 H, Absolute Lymphs (auto) 0.69 L, Nucleated RBC % 0 04/04/22 16:16: POC Glucose 149 H 04/04/22 21:35: POC Glucose 144 H 04/05/22 06:01: WBC 16.7 H, RBC 4.37 L, Hgb 13.3, Hct 40.4, MCV 92.4, MCH 30.4, MCHC 32.9, RDW Std Deviation 48.0 H, RDW Coeff of Tra 14.2, Plt Count 240, MPV 10.3, Immature Gran % (Auto) 0.600, Neut % (Auto) 85.4 H, Lymph % (Auto) 5.5 L, [place] % (Auto) 7.4, Eos % (Auto) 0.7, Baso % (Auto) 0.4, Absolute Neuts (auto) 14.3 H, Absolute Lymphs (auto) 0.91, Nucleated RBC % 0 04/05/22 06:01: Sodium 134 L, Potassium 3.4 L, Chloride 105, Carbon Dioxide 21.0, Anion Gap 8, BUN 13, Creatinine 0.83, Estim Creat Clear Calc 104.11, Est GFR (MDRD) Af Amer 125, Est GFR (MDRD) Non-Af 104, BUN/Creatinine Ratio 15.7, Glucose 140 H, Calcium 8.9 04/05/22 06:42: POC Glucose 138 H Radiography Diagnostic Testing: Radiology Impression Lower Extremity CT 04/04/22 14:17 IMPRESSION: Left hip skin thickening and subcutaneous inflammation and air is visualized suggesting cellulitis. There is hyperdense packing material in the open wound. No drainable abscess. Electronically Signed: Gilbert Resendez MD at 17:16 EDT Reading Location ID and State: Formerly named [facility] / [place] , Service support , Physical Exam Narrative General - A&Ox3, NAD. Vital signs stable, febrile overnight Left lower extremity-erythema is recessed and improved. Swelling diminished. Packing in place. Indurated area Softer this morning and significantly less tender to palpation. No fluctuance palpated. DF, PF, EHL 5/5. No short arc range of motion pain with the left hip rotation. DP pulse 2+ brisk capillary fill in toes. Assessment & Plan Assessment/Plan (1) Abscess of left groin: PLAN: Post procedure day #1 status post bedside I&D left groin abscess. Packing in place, drainage noted on dressing Cultures and sensitivities pending No drainable fluid collections noted on CT yesterday Erythema improving with IV antibiotics We will postpone surgery today with improvement noted clinically and no drainable fluid on CT scan. N.p.o. after midnight tonight. I will recheck the patient in the morning for possible I&D tomorrow if clinical status worsens.
--- NOTE | 2022-04-05 07:30 | WOUNDNOTE ---
Nursing consulted wound nurse, but orders per MD are leave dressing intact and only reinforce dressing. Dr Lowe had been in this am and assessed thigh/groin. plans to postpone surgery since there is improvement. Dr to reassess in am. dressing left in place at this time as ordered.
[2022-04-05] MEDS: Ensure Plus High Protein 120 ML LIQUID PO (08:02)
[2022-04-05] MEDS: Acetaminophen 325 MG Tablet 650 MG PO ×2 (08:14→14:42)
--- NOTE | 2022-04-05 08:42 | WOUNDNOTE ---
wound photo: left upper thigh/groin
[2022-04-05] MEDS: Mycophenolate Mofetil 250 MG Capsule 1000 MG PO (09:25)
[2022-04-05] MEDS: Cholecalciferol (VIT D3) 25 MCG TABLET (1,000 UNITS) 50 MCG PO (09:25)
[2022-04-05] MEDS: Losartan Potassium 25 MG Tablet PO (09:25)
[2022-04-05] MEDS: Tacrolimus Anhydrous 1 MG Capsule 2 MG PO (09:25)
[2022-04-05] MEDS: oxyCODONE 5 MG Tablet 10 MG PO ×2 (09:26→14:42)
--- NOTE | 2022-04-05 10:55 | PCM.PN.HOSP ---
Documented by User: Fay Holden NP, [employer]BILE LOUNGE [employer]IVER-C 04/05/22 11:06 Subjective Subjective Patient seen and examined. States he is having significant drainage from left thigh and dressing needs changed due to saturation. Denies fever, chills. Pain controlled. Denies other symptoms or complaints. Objective Data Objective Data Vital Signs: Vital Signs Temp Pulse Resp BP Pulse Ox O2 Del Method 98.2 F 87 14 112/62 96 Room Air 04/05/22 10:40 04/05/22 07:56 04/05/22 07:56 04/05/22 07:56 04/05/22 07:56 04/05/22 08:08 Oxygen Delivery Method Room Air Weight: 259 lb 11.272 oz Body Mass Index (BMI) 38.3 Intake & Output: Intake and Output for Last 24 Hours 04/03/22 04/04/22 04/05/22 23:59 23:59 23:59 Intake Total 1405.25 / 1405.25 630 / 630 Balance 1405.25 / 1405.25 630 / 630 Lab / Micro Data Result Diagrams: 04/05/22 06:01 04/05/22 06:01 Labs: Laboratory Results - last 24 hr 04/04/22 12:36: POC Glucose 163 H 04/04/22 12:39: WBC Cancelled, Corrected WBC Cancelled, RBC Cancelled, Hgb Cancelled, Hct Cancelled, MCV Cancelled, MCH Cancelled, MCHC Cancelled, RDW Std Deviation Cancelled, RDW Coeff of Tra Cancelled, Plt Count Cancelled, MPV Cancelled, Immature Gran % (Auto) Cancelled, Neut % (Auto) Cancelled, Lymph % (Auto) Cancelled, [place] % (Auto) Cancelled, Eos % (Auto) Cancelled, Baso % (Auto) Cancelled, Absolute Neuts (auto) Cancelled, Absolute Lymphs (auto) Cancelled, Total Counted Cancelled, Neutrophils % (Manual) Cancelled, Band Neutrophils % Cancelled, Lymphocytes % (Manual) Cancelled, Monocytes % (Manual) Cancelled, Eosinophils % (Manual) Cancelled, Basophils % (Manual) Cancelled, Metamyelocytes % Cancelled, Myelocytes % Cancelled, Promyelocytes % Cancelled, Blast Cells % Cancelled, Plasma Cell % (Manual) Cancelled, Other Cells % Cancelled, Nucleated RBC % Cancelled, Nucleated RBCs/100 WBC Cancelled, Differential Comment Cancelled, Diff Path Review Cancelled, Hypersegmented Neuts Cancelled, Atypical Lymphocytes Cancelled, Reactive Lymphocytes Cancelled, Smudge Cells Cancelled, Toxic Granulation Cancelled, Toxic Vacuolation Cancelled, Dohle Bodies Cancelled, Prakash Rods Cancelled, Platelet Estimate Cancelled, Plt Morphology Comment Cancelled, RBC Morphology Cancelled, Polychromasia Cancelled, Hypochromasia Cancelled, Poikilocytosis Cancelled, Basophilic Stippling Cancelled, Anisocytosis Cancelled, Microcytosis Cancelled, Macrocytosis Cancelled, Spherocytes Cancelled, Sickle Cells Cancelled, Target Cells Cancelled, Tear Drop Cells Cancelled, Ovalocytes Cancelled, Stomatocytes Cancelled, [place] Bodies Cancelled, Ray Cells Cancelled, Bite Cells Cancelled, Crenated Cell Cancelled, Acanthocytes (Spur) Cancelled, Rouleaux Cancelled, Schistocytes Cancelled 04/04/22 12:39: Sodium 136, Potassium 3.8, Chloride 102, Carbon Dioxide 22.0, Anion Gap 12, BUN 14, Creatinine 1.08, Estim Creat Clear Calc 80.01, Est GFR (MDRD) Af Amer 92, Est GFR (MDRD) Non-Af 76, BUN/Creatinine Ratio 13.0, Glucose 158 H, Calcium 10.1, Total Bilirubin 0.90, AST 19, ALT 39, Alkaline Phosphatase 121 H, Total Protein 8.1, Albumin 3.2, Globulin 4.9 H, Albumin/Globulin Ratio 0.7 L 04/04/22 13:03: WBC 17.2 H, RBC 4.92, Hgb 15.0, Hct 47.2, MCV 95.9 H, MCH 30.5, MCHC 31.8 L, RDW Std Deviation 49.6 H, RDW Coeff of Tra 14.1, Plt Count 209, MPV 10.3, Immature Gran % (Auto) 0.600, Neut % (Auto) 87.7 H, Lymph % (Auto) 4.0 L, [place] % (Auto) 7.1, Eos % (Auto) 0.2, Baso % (Auto) 0.4, Absolute Neuts (auto) 15.1 H, Absolute Lymphs (auto) 0.69 L, Nucleated RBC % 0 04/04/22 16:16: POC Glucose 149 H 04/04/22 21:35: POC Glucose 144 H 04/05/22 06:01: WBC 16.7 H, RBC 4.37 L, Hgb 13.3, Hct 40.4, MCV 92.4, MCH 30.4, MCHC 32.9, RDW Std Deviation 48.0 H, RDW Coeff of Tra 14.2, Plt Count 240, MPV 10.3, Immature Gran % (Auto) 0.600, Neut % (Auto) 85.4 H, Lymph % (Auto) 5.5 L, [place] % (Auto) 7.4, Eos % (Auto) 0.7, Baso % (Auto) 0.4, Absolute Neuts (auto) 14.3 H, Absolute Lymphs (auto) 0.91, Nucleated RBC % 0 04/05/22 06:01: Sodium 134 L, Potassium 3.4 L, Chloride 105, Carbon Dioxide 21.0, Anion Gap 8, BUN 13, Creatinine 0.83, Estim Creat Clear Calc 104.11, Est GFR (MDRD) Af Amer 125, Est GFR (MDRD) Non-Af 104, BUN/Creatinine Ratio 15.7, Glucose 140 H, Calcium 8.9 04/05/22 06:42: POC Glucose 138 H Micro: Microbiology 04/04/22 15:30 Wound Abcess - Leg, Left Wound Culture - Preliminary Gram positive organism Radiography Diagnostic Testing: Radiology Impression Lower Extremity CT 04/04/22 14:17 IMPRESSION: Left hip skin thickening and subcutaneous inflammation and air is visualized suggesting cellulitis. There is hyperdense packing material in the open wound. No drainable abscess. Electronically Signed: Gilbert Resendez MD at 17:16 EDT , Physical Exam Const alert and oriented x3 Nutritional Appearance: obese HEENT normocephalic and moist oral mucous membranes Eyes PERRL, EOMs intact bilaterally and conjunctivae normal Neck no lymphadenopathy Resp normal respiratory effort and clear to auscultation bilaterally Cardio regular rate, regular rhythm and no murmurs Peripheral Pulses: pulses 2+ throughout GI normal to inspection, nondistended, normoactive bowel sounds, non-tender and non-distended Extremity normal to inspection Skin no rashes or lesions noted Skin Narrative: Left groin/thigh cellulitis with abscess and necrotic appearance with foul-smelling/purulent drainage. Lesions: no lesions Rashes: no rashes Trauma: no lacerations or abrasions Neuro CN's II-XII intact bilaterally, no focal motor deficits, no sensory deficits noted and deep tendon reflexes 2+ bilaterally Psych mental status grossly normal and affect normal Assessment & Plan Assessment/Plan (1) Abscess of left groin: PLAN: Plan 1. Left groin/thigh abscess-bedside I&D performed by Ortho 04/04/2022. Cultures pending. Erythema improving however continues to have notable foul-smelling/purulent drainage and necrotic appearance. Ortho following with plan for further surgical I&D tomorrow. IV Zosyn and IV vancomycin. Wound RN consulted. Continue packing/dressing changes. 2. Mild hypokalemia-replace per protocol, trend BMP. 3. CAD-continue aspirin, statin, metoprolol. 4. Type 2 diabetes [id number] with sliding scale insulin. Metformin on hold. 5. History of renal transplant-continue home medication regimen 6. Hypertension-stable, continue home regimen. 7. Hyperlipidemia-continue statin. DVT prophylaxis- SCDs This patient was seen by MELVIN Snow under the supervision of Dr. Tripp. Time spent examining patient, reviewing data and subsequent management of care: 15 minutes Documented by User: Dr. Harrison Tripp MD 04/05/22 13:00 Objective Data Lab / Micro Data Result Diagrams: 04/05/22 06:01 04/05/22 06:01 Assessment & Plan Assessment/Plan (1) Abscess of left groin: Charges/Coding Addendum Addendum: Addendum: Dr. Tripp I personally examined the patient and reviewed the chart. I agree with the above. 51-year-old male on antirejection medications after renal transplant presents to the hospital with a large left thigh abscess. This was drained bedside in the ER by orthopedic surgery. He continues to have some induration and so the recommendation is further operative debridement in the OR. In discussion with orthopedic surgery, they felt that they would benefit from having general surgery backup given the extension of induration and erythema into his pannus. We will continue with broad-spectrum antibiotics, with initial wound cultures growing gram-positive organisms. No current obvious sign of necrotizing fasciitis. Clinical time spent in all aspects of patient care: 20 minutes Visit Charges Inpatient E&M: 19429 Subs Hosp L3
--- NOTE | 2022-04-05 11:05 | CASEMGMT ---
RN PAYAL CONSULTING ANALYST CM to room to meet with patient for initial transition planning/care coordination assessment. LENY MOE introduced self and role at [facility]. Pt voices understanding and consents to assessment at this time. Pt sitting up in chair in room in no distress at this time. Pt is A/O at this time and answers all questions appropriately. Care providers, pharmacy, and demographics verified/updated at this time. PCP: Dr Wagner Specialists: Dr Ramírez-nephrology, Dr Lucas-birth attendant in [facility] Pharmacy: [facility] Retail Insurance: [employer] Prescription Benefit: Yes Living Will/HPOA: Pt does not currently have LW/HCPOA and declines info at this time. Pt made aware that he can contact SW as an out-pt and make appt in the future if he decides he would like to talk with someone about this or would like to utilize [facility] social work for advanced directive completion. Given Network Operations Specialist Rac card with information and contact number. Pt expresses understanding. States does not have LW or HCPOA . Interested in more information and would like to talk w/SW to complete. CLARISA Zayas, made aware. LNOK: Aunt-Jacqueline. Brother-Kermit. Father lives in [place]. Mother lives in [place]. Living Arrangements: Lives alone in mobile home w/3 steps to enter. Independent w/ADL's and IADL's. Transportation: Pt states drives self and states no transportation concerns at this time. DME: Has a functioning glucometer w/supplies HHC/SNF: No hx of either. Discussed discharge planning. Unknown at this time if pt will need a wound vac at this time or how involved dressing changes may be. Pt states his aunt, Jacqueline, lives about 3 miles away, is supportive, but that she would not be able to assist w/dressing changes and states, I do not have anyone else. He states he would prefer to return home w/HHC, if able to, but would consider SNF, if needed. PLAN: TBD by course of treatment, dressing changes, or possible wound vac. Bridget TA RN, CM
[2022-04-05] MEDS: Potassium Chloride Oral Tablet 20 MEQ 40 MEQ PO (12:12)
[2022-04-05 12:20] LABS: Bedside Glucose 141 mg/dL (74-106)
--- NOTE | 2022-04-05 14:04 | CASEMGMT ---
Social Work SW in to meet with pt. SW introduced self and role at hospital. Pt resting in bed, agreeable to discussing discharge plan with SW. A printed list of SNF providers including quality and resources use date that is consistent with patient's preferred geographical region, medical needs, and insurances network were provided via the [employer] [place] Guide Link.?Pt expressed annoyance at having to go to SNF, stated would like to go home but understands it is not possible. Pt gave choices of [facility], [facility] and then [facility]. SW also discussed Advanced Directives with pt. Eric STARR, informed pt was interested. Pt agreeable to SW filling out as much information as possible but just received IV in wrist and was not able to sign or initial any documents. SW to check back with pt tomorrow to complete documents. SW notified d/c executive staff assistant, Jeannie Arana, of pt SNF choice. Jeannie called, [facility] Fay Holden may now be transferring pt so referral is being held until this is made clear. Plan: TBD, pt transfer to alternative hospital or referral to SNF for post acute care WERNER Mims
--- NOTE | 2022-04-05 14:07 | CASEMGMT ---
Discharge Lyric Writer CLARISA Zayas notified this residential mortgage underwriter of patient SNF choices. Fay BACH is present and discussing about patient and possible transfer. This residential mortgage underwriter notified CLARISA Zayas that patient might be a possible transfer. This residential mortgage underwriter is holding off on SNF referral. Jeannie talked to Rylee MOE and patient can go anywhere with insurance. Jeannie updated Fay BACH. Plan: Jeannie Arana Discharge Lyric Writer
[2022-04-05 14:27] LABS: Hemoglobin A1c 6.3 % (3.8-5.6)
[2022-04-05 16:40] LABS: Bedside Glucose 158 mg/dL (74-106)
[2022-04-05] MEDS: Insulin Lispro 100 UNIT/ML INSULN.PEN SC (17:35)
[2022-04-05] MEDS: Clindamycin 600 MG/50 ML BAG 100 MG IV (18:02)
[2022-04-05] MEDS: Juven (unflavored) Packet 1 PACKET PO (19:03)
--- NOTE | 2022-04-05 20:10 | NURSING ---
Report called to LENY Pinedo at [facility].
--- NOTE | 2022-04-06 16:24 | DS.PCM_ITS ---
Providers Date of Admission: 04/04/22 Date of Discharge: 04/05/22 Primary Care Physician: Mg Wagner MD Consultations 04/04/22 16:01 Consult: Orthopedics Routine Consulting Provider: Harrison See Reason for Consult: left groin cellulitis EMERGENT Consult: No MD Notified: Yes Date Notified: 04/04/22 Time Notified: 14:16 Method of Notification: Verbal 04/04/22 17:18 Consult: Onc/Wound/single pointed operator Routine Comment: DR. SEE I&D IN ER Reason for Consult:: ABCESS TO LEFT UPPER THIGH Reason For Visit: RIGHT GROIN CELLULITIS Diagnosis Discharge Diagnosis (1) Abscess of left groin: Status: Acute Code(s): L02.214 - Cutaneous abscess of groin Plan 1. Left groin/thigh abscess-bedside I&D performed by Ortho 04/04/2022. Cultures pending. Erythema improving however continues to have notable foul- smelling/purulent drainage and necrotic appearance. Ortho following with plan for further surgical I&D tomorrow. IV Zosyn and IV vancomycin. Wound RN consulted. Continue packing/dressing changes. 2. Mild hypokalemia-replace per protocol, trend BMP. 3. CAD-continue aspirin, statin, metoprolol. 4. Type 2 diabetes [id number] with sliding scale insulin. Metformin on hold. 5. History of renal transplant-continue home medication regimen 6. Hypertension-stable, continue home regimen. 7. Hyperlipidemia-continue statin. DVT prophylaxis- SCDs This patient was seen by MELVIN Snow under the supervision of Dr. Tripp. Time spent examining patient, reviewing data and subsequent management of care: 15 minutes Medications at Discharge Home Medications mycophenolate mofetil 250 mg capsule 1,000 mg PO BID@0900,2100 01/17/14 tacrolimus 1 mg capsule,extended release 24 hr (Astagraf XL) 2 mg PO DAILY@0900 01/17/14 aspirin 81 mg tablet,delayed release 81 mg PO DAILY 04/04/22 atorvastatin 80 mg tablet 80 mg PO QHS 04/04/22 cholecalciferol (vitamin D3) 50 mcg (2,000 unit) capsule 2,000 unit PO DAILY 04/04/22 icosapent ethyl 1 gram capsule 2 g PO BID 04/04/22 losartan 25 mg tablet 25 mg PO BID 04/04/22 metformin 500 mg tablet 500 mg PO BID 04/04/22 metoprolol tartrate 25 mg tablet 25 mg PO BID 04/04/22 tacrolimus 1 mg capsule, immediate-release 3 mg PO DAILY@2100 04/04/22 Hospital Course Operations None Procedures None Summary of Care Provided Minutes Spent on Discharge: 42 Hospital Course: Per HPI: JOSE ROBERTO NIX, is a 51 M who presents with several day history of left groin redness.? Patient had lesion on his buttocks that resolved after applying ointment but then developed an area in his left groin a few days ago.? Noted that it was swollen yesterday, but today, however, it got much more swollen and was oozing.? Patient presented to the emergency room and had a white count of 17,000 and a temperature of 37.5 ?C.? Patient received piperacillin/tazobactam in the emergency room.? Patient has had some slight chills at home.? Otherwise feels well.? He denies any preceding lesion to this region. Hospital Course: 1. Left groin/thigh abscess?51-year-old male who is status post renal transplant and is on antirejection medications presented to the hospital with a left thigh abscess. It was I&D in the ER with packing placed and he was started on broad-spectrum antibiotics. He did have some necrotic tissue around the I&D site and repeat examination by surgery they felt that he was can need further debridement however they did not feel comfortable doing the procedure here at this institution secondary to how deep the infection was potentially going and the need to debride potentially close to the great vessels in his thigh and so they recommended transfer. He was transferred to a tertiary care center on 04/05/2022. 2. Coronary artery disease, type 2 diabetes, history of renal transplant, hypertension, hyperlipidemia are all chronic medical conditions which complicate his care. His home medications were continued where appropriate Physical Exam Narrative General: Alert, Oriented x3, Cooperative, No apparent distress HEENT: Atraumatic, PERRLA, EOMI, Normocephalic Oral: Moist Mucosa Neck: Supple, No JVD Lungs: Clear to auscultation, Normal air movement, No rhonchi, No wheeze, No rales Cardiovascular: Regular rate, Regular Rhythm, Normal S1, Normal S2, No murmurs Abdomen: Soft, Non Tender, Non-Distended, No Hepato-splenomegaly Extremities: No edema, Capillary Refill Less than 3 Seconds Skin: Large area of induration and redness in his left upper medial thigh into his groin. 4 to 5 cm incision with packing in place Musculoskeletal: No Tenderness to Palpation of Joints or Extremities Neurological: Cranial nerves II-XII grossly intact, Motor Exam 5/5 strength throughout, Sensory exam intact to light touch and pain Psych/Mental Status: Normal Affect, Appropriate Weight / BMI Weight Weight: 259 lb 11.272 oz Body Mass Index (BMI) 38.3 ABG / Lab / Microbiology Data Result Diagrams: 04/05/22 06:01 04/05/22 06:01 Laboratory: Laboratory Results - last 24 hr 04/05/22 16:22: POC Glucose 158 H Microbiology: Microbiology 04/04/22 15:30 Wound Abcess - Leg, Left Gram Stain - Final 04/04/22 15:30 Wound Abcess - Leg, Left Wound Culture - Final Staphylococcus saprophyticus 04/04/22 15:30 Wound Abcess - Leg, Left Anaerobic Culture - Preliminary Checking for anaerobes, further studies to follow. 04/05/22 17:43 Nasal Secretion SARS-CoV-2 Antigen (Rapid) - Final Meaningful Use Info Meaningful Use Diagnoses (Choose all that apply): None applicable Discharge Plan Admission Admit Date/Time: 04/04/22 14:11 Attending Provider: Harrison Tripp Primary Care Provider: Mg Wagner Consulting Providers: Harrison See ; Adiel Toribio Discharge Orders/Prescriptions Prescriptions: No Action mycophenolate mofetil 250 MG capsule 1,000 mg PO BID@0900,2100 Astagraf XL 1 MG capsule,extended release 24hr 2 mg PO DAILY@0900 metformin 500 mg tablet 500 mg PO BID Label Comments: TAKE 1 TABLET BY MOUTH TWICE DAILY WITH MEALS atorvastatin 80 mg tablet 80 mg PO QHS Label Comments: Take 1 tablet by mouth nightly aspirin 81 mg tablet,delayed release (DR/EC) 81 mg PO DAILY Label Comments: Take 1 tablet by mouth daily losartan 25 mg tablet 25 mg PO BID Label Comments: TAKE 1 TABLET BY MOUTH EVERY 12 HOURS tacrolimus 1 mg capsule 3 mg PO DAILY@2100 Label Comments: TAKE 2 CAPSULES BY MOUTH at 9 AM and TAKE 3 CAPSULES at 9 PM. metoprolol tartrate 25 mg tablet 25 mg PO BID Label Comments: Take 1 tablet by mouth 2 times daily cholecalciferol (vitamin D3) 50 mcg (2,000 unit) capsule 2,000 unit PO DAILY Label Comments: TAKE 1 CAPSULE BY MOUTH DAILY icosapent ethyl 1 gram capsule 2 g PO BID Label Comments: TAKE 2 CAPSULES BY MOUTH TWICE DAILY Referrals / Follow Up: Laith Yousif MD [Non-Staff] - Mg Wagner MD [Primary Care Provider] - Disposition Disposition (needs filled in before D/C Order can be placed): Acute Care Hospital Charges/Coding Visit Charges Inpatient E&M: 82685 Disch Hosp
== END 2022-04-05 20:07 | disposition short-term general hospital (02) | DRG 364 ==
LOC: ED 14:01 → MS3 14:45
PROVIDERS: Anesthesiology; Emergency Provider Emergency Medicine; PCP Internal Medicine; Visit Provider Family Medicine
DX: L03.116 Cellulitis of left lower limb (principal); L02.214 Cutaneous abscess of groin; E11.9 Type 2 diabetes mellitus without complications; I25.10 Atherosclerotic heart disease of native coronary artery without angina pectoris; F17.210 Nicotine dependence, cigarettes, uncomplicated; E78.5 Hyperlipidemia, unspecified; E87.6 Hypokalemia; I10 Essential (primary) hypertension; Z79.84 Long term (current) use of oral hypoglycemic drugs; Z79.82 Long term (current) use of aspirin; Z94.0 Kidney transplant status; Z79.899 Other long term (current) drug therapy
CPT/HCPCS: 36415; 73701; 80048; 80053; 82962; 83036; 85025; 87040; 87070; 87075; 87077; 87186; 87205; 87426; 93005; 97802; 99284; J7040; J7050; Q9967; A4216